=== PATIENT | female | born 1960 | race Caucasian/White ===

== ENCOUNTER 2017-05-02 23:17 | Inpatient (IN) | payer OTHER ==
[~2017-05-02] VITALS: Ht 167.6 cm; Wt 52.0 kg
--- NOTE | ~2017-05-02 | CO ---
Unit #: [id number] #: [id number] Patient: JOSEPHINE MACEDO [id number] [facility] [address] [facility]. [place], [place] [address] [id number] I MR#: [id number] NAME: JOSEPHINE MACEDO [facility] Age: 56 Sex: F Admission Date: 05/03/2017 : 1960 Attending Physician: Kari Costa M.D. Primary Care Physician: Samira Woodson M.D. Requesting Physician: Ebonie Torres M.D. Consultation Date: 05/03/2017 CONSULTATION REPORT REASON FOR CONSULT Anoxic encephalopathy PATIENT IDENTIFICATION This is a 56-year-old female evaluated in ICU room 24 at [facility]. SOURCE OF INFORMATION Obtained from the medical record. HISTORY OF PRESENT ILLNESS This is a 56-year-old female with past medical history of chronic pain, COPD and scoliosis, who presents to [facility] with altered mental status after being found down and was in arrest, resuscitated by EMS. Apparently the patient was last seen normal about 18 to 20 minutes before she was found down. She lives with her daughter, who found the patient. Apparently she had a needle in her arm. Urine tox screen is positive for cocaine and marijuana. There is a concern she may have used fentanyl however. EMS was called when she was found but no bystander CPR was performed. The patient was in PEA when EMS arrived and apparently it took about an hour before she achieved full resuscitation. She received multiple doses of epinephrine and one amp of bicarb. On arrival to the emergency room she required another round of CPR and then they did obtain a pulse. She was intubated by the ER physician and a central line was placed. She was hypotensive and hypothermic with a core temperature of 92 degrees. Labs are as discussed below. Initially on exam in the ER she was breathing over the ventilator as per documentation but no other brainstem reflexes were present. Currently she is not overbreathing the vent. She has no brainstem reflex and no response to noxious stimuli. She has no sedation and her CT scan that was done without contrast in the ER around two o'clock this morning shows changes associated with severe global hypoxic-ischemic brain injury including generalized cerebral edema with complete loss of guzman-white matter differentiation and complete effacement of the cerebral sulci and basilar cisterns, with no evidence of intracranial hemorrhage or mass. PAST MEDICAL HISTORY 1. Chronic pain. 2. Scoliosis. 3. Spine surgery. 4. COPD. 5. Hysterectomy. 6. Tonsillectomy. Unit #: [id number] #: [id number] Patient: JOSEPHINE MACEDO 7. Tobaccoism. ALLERGIES No known drug allergies. HOME MEDICATIONS Not known. FAMILY HISTORY Not known. SOCIAL HISTORY Patient apparently lives with her daughter but apparently they do not have a very good relationship. I am uncertain if the daughter is aware of how serious the patient's situation is. She was last admitted to this facility in 2014. At that time she was working for [employer]. She has a history of tobaccoism, smoking a half pack per day of tobacco. No prior known history of polysubstance abuse but her urine tox screen is positive for cocaine and marijuana and a needle was found in her arm prior to arrival. REVIEW OF SYSTEMS Unable to obtain from the patient given her mental status. PHYSICAL EXAMINATION VITAL SIGNS: Temperature 98, on a Pravin Hugger at this time. Her core temperature on arrival appears to have been 91 degrees. Pulse 117. Respirations 20. Blood pressure 103/72. She is on two pressors. Oxygen saturation 95%. Height 5 feet, 6 inches. Weight 116 pounds. BMI 18. NEUROLOGICAL EXAMINATION MENTAL STATUS: Patient is unresponsive, on a ventilator, to noxious stimuli. She is not sedated. She is intubated. Unable to evaluate any further given that she is not responsive to noxious stimuli. CRANIAL NERVE EXAM: Unable to evaluate rodgers of vision. Eyes however are conjugate. No ptosis or nystagmus. She has negative doll's eyes. Negative corneals. Pupils are about 4+ and fixed, nonreactive. No facial asymmetry or flattening of the nasolabial folds seen. Unable to assess tongue, hearing, uvula or palate, head turning or shoulder shrug. Her neck is supple. MOTOR EXAM: Patient is flaccid. No response to noxious stimuli bilaterally. SENSORY EXAM: No response to noxious stimuli bilaterally. Romberg deferred. GAIT: Deferred. REFLEXES: Not elicited. Toes are not responsive. No triple flexion seen. DIAGNOSTIC STUDIES IMAGING: Please see above for CT scan of the head. LABORATORY: White blood cell count 22.1, hemoglobin 16.8, hematocrit 51.6, platelet count 443, sodium 144, potassium 4, chloride 107, CO2 22, glucose 198, BUN 24, creatinine 1.8, estimated GFR 30.9, calcium 8.3, AST 191, ALT 105, alkaline phosphatase 108, total protein is 7.1, albumin is 4.3, lactic acid 4, PT 12.7, INR 1.2, PTT 26.5. Urine tox screen positive for cocaine and marijuana. Troponin less than 0.05. Initial lactic acid 12.5. Urinalysis unremarkable. Unit #: [id number] #: [id number] Patient: JOSEPHINE MACEDO IMPRESSION 1. Anoxic encephalopathy. 2. Status post arrest, questionable overdose. 3. Chronic pain. 4. Chronic obstructive pulmonary disease. 5. Polysubstance abuse. 6. Leukocytosis. 7. Acute kidney injury. PLAN Dr. Nguyen to evaluate today. Given presentation and prolonged downtime as well as CT scan findings of the brain, prognosis appears to be poor at this time. We will follow along with you. Dr. Nguyen to evaluate and we will attempt to discuss with closest family members once Dr. Nguyen has evaluated the patient. Will continue to monitor at this time and provide supportive care. Further recommendations regarding any further testing pending clinical evaluation and discussion with family. Please call for any questions or issues. We thank you very much for allowing us to assist in the care of this patient. Dictated by... Brandee Lindquist A.P.R.N. for Jose Hui/adriana TD: 05/03/2017 18:49 JOB #: [id number] CONSULTATION REPORT Page 1 of 1 X Brandee Lindquist APRN X CONSULTATION REPORT
--- NOTE | ~2017-05-02 | EKG ---
PATIENT: JOSEPHINE MACEDO UNIT #: [id number] Ventricular Rate: 79 BPM Atrial Rate: 79 BPM P-R Interval: 160 ms QRS Duration: 96 ms Q-T Interval: 458 ms QTC Calculation(Bezet): 525 ms P [place]: 79 degrees Calculated R [place]: 41 degrees Calculated T [place]: 57 degrees Diagnosis Line: Normal sinus rhythm Diagnosis Line: Septal infarct , age undetermined Diagnosis Line: Prolonged QT Diagnosis Line: Abnormal ECG Diagnosis Line: When compared with ECG of 02-JUN-2016 04:22, Diagnosis Line: Vent. rate has decreased BY 42 BPM Diagnosis Line: Septal infarct is now Present Diagnosis Line: ST no longer depressed in Anterior leads Diagnosis Line: T wave inversion less evident in Anterior leads Diagnosis Line: Confirmed by ALLIE SANTIAGO MD ([id number]) on 05/03/2017 Diagnosis Line: 11:52:51 PM INTERPRETING MD: JACK HINDS
--- NOTE | ~2017-05-02 | NM13 ---
[facility] A Service of [facility] & [facility] RADIOLOGY TEXT RESULTS PATIENT: JOSEPHINE MACEDO LOCATION: [address] : [birth year] UNIT #: [id number] AGE: [address]: Kari Costa MD SEX: F ORDER DR: [id number] [facility] [address] [facility]. [place], [place] [address] [id number] I MR#: [id number] Acc #: [id number] NAME: JOSEPHINE MACEDO : 1960 SEX: F STUDY DATE/TIME: 05/04/2017 13:15 UNIT: [facility] ROOM: [facility] STUDY DESCRIPTION: MD Brain Imaging Vasc Flow Attending Physician: Kari Costa M.D. Ordering Physician: Tracy Nguyen M.D. Primary Care Physician: Samira Woodson M.D. MEDICAL IMAGING REPORT This report is preliminary unless electronic signature is present EXAM Brain study, 05/04/2017 CLINICAL HISTORY Anoxic arrest. Unresponsive. PROCEDURE The study performed with 27.1 mCi technetium-99m DTPA IV. FINDINGS Total absence of cerebral blood flow consistent with brain . STAT * RESULT Dictated by... Carlos Eduardo Martini M.D. THIS IS AN ELECTRONICALLY VERIFIED REPORT Carlos Eduardo Martini M.D. at 05/04/2017 2:50 PM THIAGO/sasha TD: 05/04/2017 14:35 JOB #: [id number] MEDICAL IMAGING REPORT Page 1 of 1 COPY
--- NOTE | ~2017-05-02 | CO ---
Unit #: [id number] #: [id number] Patient: JOSEPHINE KRAMER [id number] [address] [place], [place] [address] [id number] I MR#: [id number] NAME: JOSEPHINE KRAMER ROOM: [facility] Age: 56 Sex: F Admission Date: 05/03/2017 : 1960 Attending Physician: Kari Costa M.D. Primary Care Physician: Samira Woodson M.D. Consultation Date: 05/03/2017 CONSULTATION REPORT HISTORY OF PRESENT ILLNESS Ms. Kramer is a 56-year-old white female who was admitted status post resuscitated respiratory arrest. Apparently, she was found down by her daughter. History is gained from the electronic medical record. Apparently, she had a needle in her arm at that time. EMS was called. No bystander CPR was performed. When EMS arrived, the patient was in PEA. They worked her for about an hour. She received multiple doses of epinephrine and one amp of bicarbonate. She was brought to the emergency department being bagged by EMS. After one round of CPR in the ER, she did have a pulse. She was intubated by the ER physician and a central line was placed. She was noted to be hypotensive and hypothermic with a core temperature of 92. Her urine screen was positive for cocaine. She had acute kidney injury. Glucose was 543. Lactic acid was 12.5. Chest x-ray showed some atelectasis in the left base. She was transported to the ICU, and we were asked to see. Arterial blood gases initially on ventilator settings 450 tidal volume, 5 of PEEP, rate of 20 with a respiratory rate of 44 and 100% oxygen: pH of 7.13, PCO2 of 67, and PO2 of 331. Followup gases this morning at 0422 hours: pH of 7.31, PCO2 of 44, and PO2 of 94.7 on 50%, rate of 20, patient rate of 21, tidal volume of 550, and PEEP of 5. Creatinine is 1.8 and glucose 198. Troponin 0.1. Lactic acid now 4. Liver function tests elevated. White count 22,100, hematocrit 51.6, and platelet count 443,000. Chem toxicology positive for cocaine and marijuana. Urinalysis was fairly unremarkable. PAST MEDICAL HISTORY 1. Chronic pain. 2. History of extensive spine injury. 3. Possible COPD. PAST SURGICAL HISTORY 1. Hysterectomy. 2. Tonsillectomy. ALLERGIES No known allergies. MEDICATIONS Unknown. FAMILY HISTORY Unknown. Unit #: [id number] #: [id number] Patient: JOSEPHINE KRAMER SOCIAL HISTORY Unknown. REVIEW OF SYSTEMS Not possible. Patient intubated and unresponsive. PHYSICAL EXAMINATION GENERAL: White female orally intubated. No response. VITAL SIGNS: Blood pressure is 130/95, pulse 110, respiratory rate 16, and afebrile. She is currently maintained on pressors. HEENT: Pupils dilated and unresponsive. No brainstem reflex. No breathing above vent after placing on assist control of 5 for 4 minutes. Normocephalic and atraumatic. NECK: Trachea midline. No cervical or supraclavicular lymphadenopathy. LUNGS: Occasional rhonchi. CARDIAC: Regular rate and rhythm. Could not appreciate murmur, rub, or gallop. ABDOMEN: Nontender. Bowel sounds present. EXTREMITIES: Without clubbing, cyanosis, or edema. NEUROLOGIC: Unresponsive is noted. DIAGNOSTIC STUDIES LABORATORY: As noted. IMPRESSION 1. Severe anoxic encephalopathy. 2. Resuscitated arrest. 3. Polysubstance abuse. 4. Acute respiratory failure. 5. Acute kidney injury. PLAN Vent support. Check arterial blood gases on current ventilator settings. Normalize pH. Will need to evaluate for brain . Neurology to see. Further recommendations pending this. Dictated by... Luis Madrid M.D. GEORGIE/elise TD: 05/03/2017 20:34 JOB #: [id number] CONSULTATION REPORT Page 1 of 1 X Luis Madrid MD X CONSULTATION REPORT
--- NOTE | ~2017-05-02 | CT71 ---
[facility] A Service of [facility] RADIOLOGY TEXT RESULTS PATIENT: JOSEPHINE MACEDO LOCATION: CICCU3 CICCU3-24 : 60 UNIT #: [id number] AGE: [address]: Ebonie Torres MD SEX: F ORDER DR: [id number] [facility] [address] [facility]. [place], [place] [address] [id number] I MR#: [id number] Acc #: [id number] NAME: JOSEPHINE MACEDO : 1960 SEX: F STUDY DATE/TIME: 05/03/2017 2:10 UNIT: [facility] ROOM: 90102 STUDY DESCRIPTION: CT Head Wo Contrast Attending Physician: Ebonie Torres M.D. Ordering Physician: Armand Vail D.O. Primary Care Physician: Samira Woodson M.D. MEDICAL IMAGING REPORT This report is preliminary unless electronic signature is present EXAM CT head, noncontrast, 05/03/2017 HISTORY 56-year-old female in the ED intubated after being found down, unresponsive prior to arrival. TECHNIQUE CT examination of the head without IV contrast. This CT exam was performed with one or more of the following radiation dose reduction techniques: automatic exposure control, adjustment of mA and/or kV according to patient size, and iterative reconstruction. FINDINGS The examination shows changes associated with severe global hypoxic - ischemic brain injury. This includes generalized cerebral edema with complete loss of guzman - white matter differentiation and complete effacement of cerebral sulci and the basilar cisterns. No evidence of intracranial hemorrhage or mass. IMPRESSION Severe global hypoxic - ischemic brain injury as noted above.. STAT * RESULT Dictated by... Wilson Porter M.D. [facility] A Service of [facility] & [facility] RADIOLOGY TEXT RESULTS PATIENT: JOSEPHINE MACEDO LOCATION: CICCU3 CICCU3-24 : 60 UNIT #: [id number] AGE: [address]: Ebonie Torres MD SEX: F ORDER DR: THIS IS AN ELECTRONICALLY VERIFIED REPORT Wilson Porter M.D. at 05/03/2017 4:49 AM PRIYA/bennett TD: 05/03/2017 02:52 JOB #: [id number] MEDICAL IMAGING REPORT Page 1 of 1 COPY
--- NOTE | ~2017-05-02 | DS ---
Unit #: [id number] #: [id number] Patient: JOSEPHINE MACEDO [id number] [address] [address] [id number] I MR#: [id number] NAME: JOSEPIHNE MACEDO ROOM: [facility] Age: 56 Sex: F Admission Date: 05/03/2017 : 1960 Discharge Date: 05/04/2017 Attending Physician: Kari Costa M.D. Primary Care Physician: Samira Woodson M.D. DISCHARGE SUMMARY DISCHARGE DIAGNOSES 1. Brain . 2. Anoxic brain injury. 3. Status post cardiorespiratory arrest. 4. Acute kidney injury. 5. Hypernatremia. 6. Hypokalemia. 7. Transaminitis likely from shock liver. 8. Possible aspiration pneumonia. 9. Chronic obstructive pulmonary disease. 10. Chronic pain. 11. Hyperglycemia secondary to reactive. 12. Elevated lactic acid. 13. History of scoliosis. 14. Polysubstance abuse. 15. Hypocalcemia. 16. Moderate protein malnutrition. 17. Underweight with moderate calorie malnutrition. 18. Urine drug screen positive for cocaine and marijuana. CONSULTATIONS 1. Dr. Madrid. 2. Dr. Nguyen. PROCEDURES None. DIAGNOSTIC TESTING LAB DATA: Hemoglobin A1C 5.7. Glucose 165. Troponin 0.03. Sodium 152, potassium 3, creatinine 1.6, carbon dioxide 34, AST 81, ALT 49, albumin 2.2, lipase 17. CK 668. Sputum culture normal. ABG - pH 7.35, carbon dioxide 58, oxygen 101. IMAGING: Brain perfusion scan shows total absence of cerebral blood flow consistent with brain . CT of the head shows severe global hypoxic ischemic brain injury. Chest x-ray shows bibasilar pulmonary infiltrates and atelectasis, greater on the left. HOSPITALIZATION COURSE A 56 year old admitted after cardiac arrest. Please see history for more details. She was found down, last seen 18 minutes before the Unit #: [id number] #: [id number] Patient: JOSEPHINE MACEDO unresponsiveness. CPR was started by EMS, and she was admitted in ICU. Throughout the hospitalization course she was unresponsive. No pupillary, no gag, no corneal reflex. The patient was hypotensive and hypothermic. Her tox screen was positive for cocaine and marijuana. The patient was seen by pulmonary and neurology, Dr. Nguyen. Discussed with family and daughter, who is next of kin. The patient had brain perfusion scan, which showed brain . The patient was pronounced on 05/04/2017 at 1435 hours after brain perfusion scan showed brain . Daughter and family notified. Currently the patient is under HARRY care. Dictated by... Jose Jain/makenna TD: 05/05/2017 16:07 JOB #: [id number] DISCHARGE SUMMARY Page 1 of 1 X Kari Costa MD X DISCHARGE SUMMARY
--- NOTE | ~2017-05-02 | EKG ---
PATIENT: JOSEPHINE MACEDO UNIT #: [id number] Ventricular Rate: 107 BPM Atrial Rate: 107 BPM P-R Interval: 122 ms QRS Duration: 90 ms Q-T Interval: 366 ms QTC Calculation(Bezet): 488 ms P [place]: 77 degrees Calculated R [place]: 27 degrees Calculated T [place]: 45 degrees Diagnosis Line: Sinus tachycardia Diagnosis Line: Right atrial enlargement Diagnosis Line: Borderline ECG Diagnosis Line: When compared with ECG of 03-MAY-2017 00:23, Diagnosis Line: (unconfirmed) Diagnosis Line: Criteria for Septal infarct are no longer Present Diagnosis Line: Confirmed by ALLIE SANTIAGO MD ([id number]) on 05/03/2017 Diagnosis Line: 11:59:47 PM INTERPRETING MD: JACK HINDS
--- NOTE | ~2017-05-02 | A ---
[facility] Nutrition Therapy DATE: 05/03/17 Patient: JOSEPHINE MACEDO Physician: SHYLA Address: [address] [place] [address] Room/Bed: [address], Zip: [place] [address] Admit Date: 05/03/17 Date of : [birth year] Height: 5 6 Weight: 116 53 NUTRITIONAL ASSESSMENT: REASON: NPO + intubated in ICU, ?low BMI Admitting dx: 56 y/o female found down at home with a needle in her arm, PEA arrest, - CPR PMH: possible COPD, chronic pain Anthropometrics: Ht: 66" vs 64", Wt: 52.7 kg (116 lbs), BMI: 18 vs 19.9 Past weights: 139-147 lbs (2014) Labs: glucose 198, POC 136-192, BUN 24, creat 1.8, GFR 30.9, AST 191, ALT 105, Na/K WNL, no Phos/Mg drawn Meds: Nacl, Na bicarb, pepcid, IV Abx, abraham, levophed I/O & Bowel function: Diarrhea 05/03 per FMS, NGT to LWS Skin Integrity: No significant issues, no edema Estimated Nutrition Needs: 4712-3321 kcals/day (28-32 kcals/kg) 53-63 g protein/day (1-1.2 g/kg) Fluids consistent with kcal needs or per MD Assessment: Chart reviewed, events noted. See admitting dx and PMH as stated above. + SEBASTIAN, glucose 543 on admission now better controlled. Tested + for cocaine and marijuana. CT shows hypoxic brain injury, pt unresponsive on the vent at this time on 2 pressors and no sedation. Has NGT to LWS. No family available to speak with at this time to obtain height/weight history (see conflicting heights and past weights above). Pt is possibly clinically underweight. See recs below, will follow hospital course. Dx: Inadequate energy intake r/t nutrition not yet initiated AEB NPO x 1 day, intubated. Intervention: EN if appropriate Monitoring, Evaluation and Goals: 1. EN consistent with estimated nutritional needs. 2. Glucose, lytes WNL. Monitor: per protocol, criteria to determine if above goals met [facility] Nutrition Therapy DATE: 05/03/17 Patient: JOSEPHINE MACEDO Physician: SHYLA Address: [address] [place] [address] Room/Bed: [address], Zip: [place] [address] Admit Date: 05/03/17 Date of : [birth year] Height: 5 6 Weight: 116 53 Recommendations: 1. Once hemodynamically stable, if consistent with goals of care and medically feasible initiate enteral nutrition with Jevity 1.5 @ 20 ml/hr and increase by 10 ml q 6 hours until goal rate of 45 ml/hr is reached. This will provide 1080 ml, 1620 kcals, 69 g protein and 821 ml water. Once at goal rate add free water flushes per MD, suggest 200 ml QID. 2. If SEBASTIAN worsens and K+/Phos become elevated change EN formula to Nepro goal 35 ml/hr. RD will follow Moderate-severe nutrition risk Respectfully, Casi Mcneal, RD, LD [facility] cc: client file
--- NOTE | ~2017-05-02 | CR72 ---
[facility] A Service of [facility] & [facility] RADIOLOGY TEXT RESULTS PATIENT: JOSEPHINE MACEDO LOCATION: [address] : [birth year] UNIT #: [id number] AGE: [address]: Kari Costa MD SEX: F ORDER DR: [id number] [facility] [address]. [place], [place] [address] [id number] I MR#: [id number] Acc #: [id number] NAME: JOSEPHINE MACEDO : 1960 SEX: F STUDY DATE/TIME: 05/03/2017 0:13 UNIT: [facility] ROOM: [facility] STUDY DESCRIPTION: CR Chest Single View Portable Attending Physician: Kari Costa M.D. Ordering Physician: Armand Vail D.O. Primary Care Physician: Samira Woodson M.D. MEDICAL IMAGING REPORT This report is preliminary unless electronic signature is present EXAM Chest x-ray, 05/03/2017. HISTORY 56-year-old female in the ED intubated after being found down unresponsive with hypodermic needle in her arm. TECHNIQUE AP portable chest x-ray. FINDINGS Newly placed endotracheal tube is in good position with tip in the mid thoracic trachea about 2.7 cm above the ericka. Shallow lung expansion. Air distended stomach likely related to mask ventilation prior to intubation. Moderately dense infiltrate is present in the left lung base, and there is bibasilar pulmonary atelectasis. This is nonspecific, but aspiration pneumonitis should be considered given the history. Mid and upper lungs clear. No pneumothorax. Medhat fixation of the thoracolumbar spine. Scoliosis. IMPRESSION 1. ETT in good position. 2. Bibasilar pulmonary infiltrates and atelectasis, greater on the left. Dictated by... Wilson Porter M.D. THIS IS AN ELECTRONICALLY VERIFIED REPORT Wilson Porter M.D. at 05/03/2017 10:00 PM SHAKIRAW/latoya STS. [facility] A Service of [facility] & [facility] RADIOLOGY TEXT RESULTS PATIENT: JOSEPHINE MACEDO LOCATION: [address] : [birth year] UNIT #: [id number] AGE: [address]: Kari Costa MD SEX: F ORDER DR: TD: 05/03/2017 12:15 JOB #: [id number] MEDICAL IMAGING REPORT Page 1 of 1 COPY
--- NOTE | ~2017-05-02 | HP ---
Unit #: [id number] #: [id number] Patient: JOSEPHINE MACEDO [id number] [address] [place], [place] [address] [id number] MR#: [id number] NAME: JOSEPHINE MACEDO ROOM: [facility] Age: 56 Sex: F Admission Date: 05/03/2017 : 1960 Attending Physician: Ebonie Torres M.D. Primary Care Physician: Samira Woodson M.D. HISTORY AND PHYSICAL CHIEF COMPLAINT Resuscitated arrest. HISTORY This 56-year-old female with possible COPD, chronic pain, is admitted as a resuscitated arrest. Family left. I am told by the ER physician that the patient was last seen normal 18 minutes before she was found down. She was found down by her daughter, and I am told she had a needle in her arm. EMS was called, but no bystander CPR was performed. When EMS arrived, the patient was in PEA. They worked on her for about an hour, she received multiple doses of epinephrine and one amp of bicarb. She was brought into this emergency department being bagged by EMS. After one round of CPR in the ER, she did have a pulse. She was intubated by the ER physician and a central line was placed. The patient was hypotensive, hypothermic with a core temperature of about 92 degrees. In the course of her evaluation, urine tox screen is positive for cocaine. Labs notable for acute kidney injury, and hyperglycemia with a glucose of 543. Lactic acid is 12.5. Chest x-ray shows atelectasis versus infiltrate in the left base. On examination, she is breathing above the ventilator, but no other brainstem reflexes are present. In our ER, she was bolused with 2 L of saline, started on both the Levophed as well as the Asim-Synephrine drip, given 2 amps of bicarb. The patient was hypothermic, and requiring two pressors, therefore it was excluded from hypothermia protocol. PAST MEDICAL HISTORY 1. Chronic pain. 2. History of scoliosis and extensive spine surgery. 3. Possible COPD. 4. Hysterectomy. 5. Tonsillectomy. ALLERGIES No known drug allergies. HOME MEDICATIONS Unknown. FAMILY HISTORY Unknown. SOCIAL HISTORY Unit #: [id number] #: [id number] Patient: JOSEPHINE MACEDO Unknown. In 2014, when she was admitted to this facility, she was working for [employer], was smoking a half pack per day. REVIEW OF SYSTEMS Impossible to obtain as patient is unarousable on a ventilator. PHYSICAL EXAMINATION GENERAL APPEARANCE: Unarousable, thin, 56-year-old female who is orally intubated. VITAL SIGNS: Initial temperature was 91, initial pulse 70, current respirations are 46, O2 saturation is 98% on FIO2 of 100%. Currently blood pressure is 122/71 on both Asim-Synephrine and Levophed drips. Her initial blood pressure, however, was as low as 57/40. Heart rate 87. HEENT: Pupils are nonreactive, and measure about 3 cm. Negative corneals, negative doll's. NECK: Supple. CHEST: Fairly clear. CARDIAC: Normal S1 and S2 without definite murmur. Bilateral breast implants are noted. ABDOMEN: Bowel sounds are not present. Abdomen does look to be somewhat distended. No definite hepatosplenomegaly or masses. EXTREMITIES: Without pedal edema. There is some IO in the left barone. There are some abrasions over the left forearm. NEUROLOGIC EXAM: The patient is breathing above the ventilator. Her pupils are about 3 cm, nonreactive. Negative corneals, negative doll's. She does not react to noxious stimuli. DIAGNOSTIC STUDIES LABORATORY: Admission labs - hematocrit 47.6, white blood count 12.5, MCV 98, normal platelet count. Two bands noted. SMA-12 - glucose is 543, was normal two years ago. Creatinine 1.8, was normal two years ago. Chloride 96, CO2 20, AST 84, ALT 55, lactic acid 12.5. Cardiac markers negative. Urine tox screen positive for marijuana and cocaine. Urinalysis negative. IMAGING: Chest x-ray - ET-tube in good position. Extensive spine surgery. Left lower lobe atelectasis versus infiltrate. CARDIOVASCULAR: EKG - sinus rhythm, rate 80. Q noted in V1 and V2. ASSESSMENT 1. Resuscitated arrest: The patient was found with a needle in her arm. Urine tox screen is positive for cocaine, although I suspect patient could have also used fentanyl which would give a negative urine tox screen. EMS worked on the patient for about an hour in the field. She was in and out of PEA. She was last seen normal 18 minutes before she was found down and I am told no bystander's CPR was performed. She now presents hypothermic, hypotensive with obvious anoxic encephalopathy. 2. Possible aspiration. 3. History of COPD. 4. History of chronic pain. Unit #: [id number] #: [id number] Patient: JOSEPHINE MACEDO 5. Hyperglycemia which could be reactive. 6. Acute kidney injury. 7. Elevated lactic acid: I do not believe the patient is septic. I believe elevated lactic acid is due to poor perfusion state from her cardiac arrest PLANS 1. Head CT. 2. IV fluids and pressors. 3. Repeat all labs including cardiac enzymes in the morning. 4. Zosyn, pending blood and sputum cultures. 5. Repeat urine tox screen. 6. DVT and gastritis prophylaxis. 7. Pulmonary and neurology consultations. 8. Prognosis is extremely guarded. Critical care time spent in evaluating this patient was 40 minutes. Dictated by Ebonie Torres M.D. LEATHA/joseluis TD: 05/03/2017 05:03 JOB #: [id number] HISTORY AND PHYSICAL Page 1 of 1 X Ebonie Torres MD X HISTORY AND PHYSICAL
[~2017-05-02 23:17] MED LIST: AMOXICILLIN500 M1 PO; BACLOFEN20 M1 PO; DURAGESIC100 MCG EXT; LEVAQUIN750 M1 PO; NEURONTIN600 MG PO; OXYCONTIN80 MG PO; PREDNISONE10 MG PO; PROAIR HFA8.5 GM INH; SYMBICORT INH
[2017-05-03 00:03] LABS: ARTERIAL BLD GAS O2 SATURATION 92.3 % (90.0-100.0); ARTERIAL BLOOD GAS CARBOXY HB 5.5 %sat (0.0-9.0); ARTERIAL BLOOD GAS HCO3 14.1 mmol/L; ARTERIAL BLOOD GAS MET HB 1.3 %sat (0.0-2.0)
[2017-05-03 00:04] LABS: ARTERIAL BLOOD GAS pH 6.895 (7.350-7.450)
[2017-05-03 00:05] LABS: ARTERIAL BLOOD GAS ALLEN TEST NORMAL; ARTERIAL BLOOD GAS ART SITE LEFT RADIAL; ARTERIAL BLOOD GAS DELIVERY VENT; ARTERIAL BLOOD GAS PCO2 73.2 mmHg (35.0-45.0); ARTERIAL BLOOD GAS VENT MODE AC; ARTERIAL DRAW? YES
[2017-05-03 00:08] LABS: POC - CKMB 1.3 ng/mL (0.0-7.9); POC - TROPONIN <0.05 ng/mL (<=0.05)
[2017-05-03 00:25] LABS: URINE SOURCE CLEAN CATCH
[2017-05-03 00:29] LABS: URINE APPEARANCE CLEAR; URINE BILIRUBIN NEG (NEG); URINE BLOOD NEG (NEG); URINE COLOR YELLOW; URINE GLUCOSE NEG (NEG); URINE KETONE NEG (NEG); URINE LEUKOCYTE ESTERASE NEG (NEG); URINE NITRATE NEG (NEG); URINE PROTEIN NEG (NEG); URINE SPECIFIC GRAVITY 1.017 (1.003-1.035)
[2017-05-03 00:32] LABS: CULTURE INDICATED? NO
[2017-05-03 00:40] LABS: INR 1.1; PARTIAL THROMBOPLASTIN TIME 82.6 SECONDS (23.5-31.3); PROTHROMBIN TIME (PATIENT) 11.7 SECONDS (10.0-11.7)
[2017-05-03 00:44] LABS: AMPHETAMINE NEG (NEG); BARBITURATES NEG (NEG); BENZODIAZEPINES NEG (NEG); COCAINE POS (NEG); MARIJUANA POS (NEG); OPIATES NEG (NEG); TRICYCLIC ANTIDEPRESSANTS NEG (NEG); U METHADONE NEG (NEG)
[2017-05-03 00:50] LABS: ALBUMIN SERUM 3.9 g/dL (3.5-5.0); BILIRUBIN,TOTAL 0.5 mg/dL (0.2-2.0); BUN/CREATININE RATIO 9.44; CALCIUM SERUM 9.3 mg/dL (8.4-10.2); CREATININE SERUM 1.8 mg/dL (0.6-1.4); GLOM FILT RATE Estimated 30.9 mL/min (>60); POTASSIUM 4.5 mmol/L (3.5-5.1); PROTEIN TOTAL SERUM 6.3 g/dL (6.0-8.3)
[2017-05-03 00:54] LABS: BASOPHIL# 0.1 X10e3 (0-0.3); BASOPHIL% 0.5 % (0-2.5); EOSINOPHIL# 0.2 X10e3 (0-0.7); EOSINOPHIL% 1.7 % (0.0-7.0); HEMATOCRIT 47.6 % (35.0-45.0); LYMPHOCYTE# 6.6 X10e3 (1.0-3.5); MEAN CELL VOLUME 98.4 FL (83-96); MEAN CORPUSCULAR HGB CONC 29.4 g/dL (30-36); MEAN PLATELET VOLUME 6.7 FL (6.5-11.5); MONOCYTE# 0.7 X10e3 (0-1.0); MONOCYTE% 5.6 % (3.0-12.0); NEUTROPHIL# 4.9 X10e3 (1.5-7.1); NEUTROPHIL% 39.2 % (40-75); PLATELET COUNT 346 X10e3 (140-420); RED BLOOD COUNT 4.83 X10e (3.90-5.30); RED CELL DISTRIBUTION WIDTH 15.4 % (11.0-15.5); WHITE BLOOD COUNT 12.5 X10e3 (4.0-10.5)
[2017-05-03 01:22] LABS: DIFF IND YES
[2017-05-03 01:28] LABS: ANISOCYTOSIS SL; PLATELET ESTIMATE NORMAL (NORMAL); POIKILOCYTOSIS SL; TEAR DROP CELLS PRESENT
[2017-05-03 02:32] LABS: ARTERIAL BLD GAS O2 SATURATION 96.3 % (90.0-100.0); ARTERIAL BLOOD GAS CARBOXY HB 2.6 %sat (0.0-9.0); ARTERIAL BLOOD GAS HCO3 22.7 mmol/L; ARTERIAL BLOOD GAS MET HB 0.8 %sat (0.0-2.0)
[2017-05-03 02:34] LABS: ARTERIAL BLOOD GAS ALLEN TEST NORMAL; ARTERIAL BLOOD GAS ART SITE LEFT RADIAL; ARTERIAL BLOOD GAS DELIVERY VENT; ARTERIAL BLOOD GAS PCO2 67.6 mmHg (35.0-45.0); ARTERIAL BLOOD GAS VENT MODE AC; ARTERIAL BLOOD GAS pH 7.134 (7.350-7.450); ARTERIAL DRAW? YES
[2017-05-03 03:28] LABS: POC - CKMB 16.6 ng/mL (0.0-7.9); POC - TROPONIN <0.05 ng/mL (<=0.05)
[2017-05-03 04:23] LABS: ARTERIAL BLD GAS O2 SATURATION 95.4 % (90.0-100.0); ARTERIAL BLOOD GAS CARBOXY HB 1.9 %sat (0.0-9.0); ARTERIAL BLOOD GAS HCO3 22.3 mmol/L; ARTERIAL BLOOD GAS MET HB 0.6 %sat (0.0-2.0); ARTERIAL BLOOD GAS PCO2 44.4 mmHg (35.0-45.0); ARTERIAL BLOOD GAS PO2 94.7 mmHg (80.0-100)
[2017-05-03 04:24] LABS: ARTERIAL BLOOD GAS ALLEN TEST NORMAL; ARTERIAL BLOOD GAS ART SITE LEFT RADIAL; ARTERIAL BLOOD GAS DELIVERY VENT; ARTERIAL BLOOD GAS VENT MODE AC; ARTERIAL DRAW? YES
[2017-05-03 05:32] LABS: AMPHETAMINE NEG (NEG); BARBITURATES NEG (NEG); BENZODIAZEPINES NEG (NEG); COCAINE POS (NEG); MARIJUANA POS (NEG); OPIATES NEG (NEG); TRICYCLIC ANTIDEPRESSANTS NEG (NEG); U METHADONE NEG (NEG)
[2017-05-03 06:12] LABS: INR 1.2; PROTHROMBIN TIME (PATIENT) 12.7 SECONDS (10.0-11.7)
[2017-05-03 06:15] LABS: PARTIAL THROMBOPLASTIN TIME 26.5 SECONDS (23.5-31.3)
[2017-05-03 06:24] LABS: BASOPHIL% 0.2 % (0-2.5); EOSINOPHIL% 0.2 % (0.0-7.0); HEMATOCRIT 51.6 % (35.0-45.0); LYMPHOCYTE# 1.7 X10e3 (1.0-3.5); LYMPHOCYTE% 7.5 % (17.0-45.0); MEAN CORPUSCULAR HEMOGLOBIN 28.6 PG (28-34); MEAN CORPUSCULAR HGB CONC 32.7 g/dL (30-36); MEAN PLATELET VOLUME 6.2 FL (6.5-11.5); MONOCYTE# 0.5 X10e3 (0-1.0); MONOCYTE% 2.5 % (3.0-12.0); NEUTROPHIL# 19.8 X10e3 (1.5-7.1); NEUTROPHIL% 89.6 % (40-75); PLATELET COUNT 443 X10e3 (140-420); RED BLOOD COUNT 5.88 X10e (3.90-5.30); RED CELL DISTRIBUTION WIDTH 14.3 % (11.0-15.5)
[2017-05-03 06:33] LABS: HEMOGLOBIN 16.8 gm/dL (12.0-16.0); WHITE BLOOD COUNT 22.1 X10e3 (4.0-10.5)
[2017-05-03 06:35] LABS: MEAN CELL VOLUME 87.6 FL (83-96)
[2017-05-03 06:38] LABS: ALBUMIN SERUM 4.3 g/dL (3.5-5.0); BILIRUBIN,TOTAL 0.4 mg/dL (0.2-2.0); BUN/CREATININE RATIO 13.33; CALCIUM SERUM 8.3 mg/dL (8.4-10.2); CREATININE SERUM 1.8 mg/dL (0.6-1.4); GLOM FILT RATE Estimated 30.9 mL/min (>60); PROTEIN TOTAL SERUM 7.1 g/dL (6.0-8.3)
[2017-05-03 06:43] LABS: DIFF IND YES
[2017-05-03 07:18] LABS: ANISOCYTOSIS SL; PLATELET ESTIMATE NORMAL (NORMAL)
[2017-05-03 11:32] LABS: %MB 2.1 % (0.0-4.0); MB 35.4 ng/ml
[2017-05-03 12:02] LABS: ARTERIAL BLD GAS O2 SATURATION 97.8 % (90.0-100.0); ARTERIAL BLOOD GAS CARBOXY HB 0.6 %sat (0.0-9.0); ARTERIAL BLOOD GAS HCO3 29.5 mmol/L; ARTERIAL BLOOD GAS PCO2 47.9 mmHg (35.0-45.0); ARTERIAL BLOOD GAS pH 7.399 (7.350-7.450)
[2017-05-03 12:03] LABS: ARTERIAL BLOOD GAS ALLEN TEST NORMAL; ARTERIAL BLOOD GAS ART SITE RIGHT RADIAL; ARTERIAL BLOOD GAS DELIVERY VENT; ARTERIAL BLOOD GAS VENT MODE A/C; ARTERIAL DRAW? YES
[2017-05-03 16:56] LABS: %MB 2.1 % (0.0-4.0); MB 33.6 ng/ml
[2017-05-04 04:28] LABS: ARTERIAL BLD GAS O2 SATURATION 96.5 % (90.0-100.0); ARTERIAL BLOOD GAS CARBOXY HB 0.3 %sat (0.0-9.0); ARTERIAL BLOOD GAS MET HB 0.6 %sat (0.0-2.0); ARTERIAL BLOOD GAS PO2 99.3 mmHg (80.0-100); ARTERIAL BLOOD GAS pH 7.304 (7.350-7.450)
[2017-05-04 04:38] LABS: ARTERIAL BLOOD GAS ALLEN TEST NORMAL; ARTERIAL BLOOD GAS ART SITE RIGHT RADIAL; ARTERIAL BLOOD GAS DELIVERY VENT; ARTERIAL BLOOD GAS PCO2 76.6 mmHg (35.0-45.0); ARTERIAL BLOOD GAS VENT MODE A/C; ARTERIAL DRAW? YES
[2017-05-04 08:01] LABS: BASOPHIL% 0.1 % (0-2.5); EOSINOPHIL% 0.4 % (0.0-7.0); HEMATOCRIT 49.3 % (35.0-45.0); HEMOGLOBIN 16.6 gm/dL (12.0-16.0); LYMPHOCYTE# 0.6 X10e3 (1.0-3.5); LYMPHOCYTE% 6.7 % (17.0-45.0); MEAN CELL VOLUME 87.2 FL (83-96); MEAN CORPUSCULAR HEMOGLOBIN 29.3 PG (28-34); MEAN CORPUSCULAR HGB CONC 33.6 g/dL (30-36); MEAN PLATELET VOLUME 6.4 FL (6.5-11.5); MONOCYTE# 0.4 X10e3 (0-1.0); MONOCYTE% 4.2 % (3.0-12.0); NEUTROPHIL# 8.1 X10e3 (1.5-7.1); NEUTROPHIL% 88.6 % (40-75); RED BLOOD COUNT 5.66 X10e (3.90-5.30); RED CELL DISTRIBUTION WIDTH 14.4 % (11.0-15.5)
[2017-05-04 08:23] LABS: WHITE BLOOD COUNT 9.1 X10e3 (4.0-10.5)
[2017-05-04 08:32] LABS: DIFF IND YES; PLATELET COUNT 185 X10e3 (140-420)
[2017-05-04 08:35] LABS: BILIRUBIN,TOTAL 0.6 mg/dL (0.2-2.0); BUN/CREATININE RATIO 16.66; CALCIUM SERUM 7.5 mg/dL (8.4-10.2); CREATININE SERUM 1.5 mg/dL (0.6-1.4); GLOM FILT RATE Estimated 38.6 mL/min (>60); PROTEIN TOTAL SERUM 5.3 g/dL (6.0-8.3)
[2017-05-04 08:36] LABS: ANISOCYTOSIS SL; PLATELET ESTIMATE NORMAL (NORMAL)
[2017-05-04 08:40] LABS: POTASSIUM 2.8 mmol/L (3.5-5.1)
[2017-05-04 11:56] LABS: AMPHETAMINE NEG (NEG); BARBITURATES NEG (NEG); BENZODIAZEPINES NEG (NEG); COCAINE POS (NEG); MARIJUANA NEG (NEG); OPIATES NEG (NEG); TRICYCLIC ANTIDEPRESSANTS NEG (NEG); U METHADONE NEG (NEG)
[2017-05-06 14:54] LABS: HA AB IGM (HEPPAN) Nonreactive (()); HB CORE AB IGM (HEPPAN) Nonreactive (Nonreactive); HB S AG (HEPPAN) Nonreactive (Nonreactive); HEP C AB (HEPPAN) Nonreactive (Nonreactive); HEP C AB SIGNAL TO CUTOFF 0.01 ratio (<1.00)
== END 2017-05-04 23:15 | DRG 917 ==
LOC: CED 23:17 → CEDOF 05-03 00:39 → CICCU3 05-03 03:55
PROVIDERS: Emergency Medicine; Internal Medicine; Nurse Practitioner
PROC: 0BH17EZ Insertion of Endotracheal Airway into Trachea, Via Natural or Artificial Opening (ICD-10-PCS; principal; 2017-05-03)
PROC: 5A1945Z Respiratory Ventilation, 24-96 Consecutive Hours (ICD-10-PCS; 2017-05-03)
PROC: 05H333Z Insertion of Infusion Device into Right Innominate Vein, Percutaneous Approach (ICD-10-PCS; 2017-05-03)
PROC: B54MZZA Ultrasonography of Right Upper Extremity Veins, Guidance (ICD-10-PCS; 2017-05-03)
DX: T40.5X1A Poisoning by cocaine, accidental (unintentional), initial encounter (principal); K72.00 Acute and subacute hepatic failure without coma; I46.9 Cardiac arrest, cause unspecified; J96.00 Acute respiratory failure, unspecified whether with hypoxia or hypercapnia; J69.0 Pneumonitis due to inhalation of food and vomit; G93.1 Anoxic brain damage, not elsewhere classified; I95.9 Hypotension, unspecified; E83.51 Hypocalcemia; E87.0 Hyperosmolality and hypernatremia; N17.9 Acute kidney failure, unspecified; E44.0 Moderate protein-calorie malnutrition; Z68.1 Body mass index [BMI] 19.9 or less, adult; J44.9 Chronic obstructive pulmonary disease, unspecified; M41.9 Scoliosis, unspecified; G89.29 Other chronic pain; Z90.710 Acquired absence of both cervix and uterus; F17.210 Nicotine dependence, cigarettes, uncomplicated; E87.6 Hypokalemia; R73.9 Hyperglycemia, unspecified; R68.0 Hypothermia, not associated with low environmental temperature; F14.10 Cocaine abuse, uncomplicated; F12.10 Cannabis abuse, uncomplicated
CPT/HCPCS: 31500; 36415; 36556; 36600; 51702; 70450; 71010; 78610; 80053; 80074; 80307; 81003; 82550; 82553; 82803; 82947; 83605; 83735; 84132; 84484; 85025; 85610; 85730; 86850; 86900; 86901; 87040; 87070; 87205; 87493; 87806; 92950; 93005; 94002; 94003; 94640; 94760; 96361; 96374; 99291; A9539; J0171; J2370; J2543; J3475

== ENCOUNTER 2017-05-04 23:15 | Inpatient (IN) | payer OTHER ==
[~2017-05-04] VITALS: Ht 167.6 cm; Wt 53.0 kg
--- NOTE | ~2017-05-04 | CR72 ---
[facility] A Service of [facility] & [facility] RADIOLOGY TEXT RESULTS PATIENT: JOSEPHINE MACEDO LOCATION: [address] : [birth year] UNIT #: [id number] AGE: [address]: VINAY SEX: F ORDER DR: [id number] [facility] [address] [facility]. [place], [place] [address] [id number] MR#: [id number] Acc #: [id number] NAME: JOSEPHINE MACEDO : 1960 SEX: F STUDY DATE/TIME: 05/05/2017 06:32 UNIT: [facility] ROOM: [facility] STUDY DESCRIPTION: CR Chest Single View Portable Attending Physician: Vinay Ordering Physician: Physician Non-Staff Primary Care Physician: Samira Woodson M.D. MEDICAL IMAGING REPORT This report is preliminary unless electronic signature is present EXAM Chest portable, 05/05/2017 06:32 hours HISTORY Respiratory failure since 05/03/2017, brain . Film required per VINAY guidelines. COMPARISON 05/03/2017 FINDINGS Portable semierect chest film demonstrates endotracheal tube and nasogastric tube unchanged. There is spinal hardware extending from the lower thoracic spine to the upper lumbar spine without change. Heart size is within normal limits. Nasogastric tube tip is in the mid body of the stomach. There is persistent left basilar density in the retrocardiac region, perhaps a small effusion. IMPRESSION 1. Satisfactory positioning of endotracheal tube and nasogastric tube. 2. There is persistent left retrocardiac parenchymal density in the lung with perhaps a small associated effusion. This could represent pneumonia, atelectasis or aspiration. The right lung is clear. 3. There is no pneumothorax. STAT * RESULT Dictated by... Floridalma Muir M.D. THIS IS AN ELECTRONICALLY VERIFIED REPORT Floridalma Muir M.D. at 05/05/2017 2:30 PM [facility] A Service of [facility] & [facility] RADIOLOGY TEXT RESULTS PATIENT: JOSEPHINE MACEDO LOCATION: [address] : [birth year] UNIT #: [id number] AGE: [address]: VINAY SEX: F ORDER DR: TD: 05/05/2017 12:32 JOB #: [id number] MEDICAL IMAGING REPORT Page 1 of 1 COPY
--- NOTE | ~2017-05-04 | EKG ---
PATIENT: JOSEPHINE MCAEDO UNIT #: [id number] Ventricular Rate: 111 BPM Atrial Rate: 111 BPM P-R Interval: 124 ms QRS Duration: 90 ms Q-T Interval: 356 ms QTC Calculation(Bezet): 484 ms P [place]: 53 degrees Calculated R [place]: 12 degrees Calculated T [place]: 68 degrees Diagnosis Line: Sinus tachycardia Diagnosis Line: Septal infarct , age undetermined Diagnosis Line: T wave abnormality, consider anterior ischemia Diagnosis Line: Abnormal ECG Diagnosis Line: When compared with ECG of 03-MAY-2017 05:57, Diagnosis Line: Septal infarct is now Present Diagnosis Line: Nonspecific T wave abnormality, worse in Inferior Diagnosis Line: leads Diagnosis Line: T wave inversion now evident in Anterior leads Diagnosis Line: Confirmed by ALLIE SANTIAGO MD ([id number]) on 05/05/2017 Diagnosis Line: 7:19:05 PM INTERPRETING MD: JACK HINDS
[2017-05-05 00:37] LABS: ARTERIAL BLD GAS O2 SATURATION 93.3 % (90.0-100.0); ARTERIAL BLOOD GAS CARBOXY HB 0.5 %sat (0.0-9.0); ARTERIAL BLOOD GAS HCO3 39.5 mmol/L; ARTERIAL BLOOD GAS MET HB 0.7 %sat (0.0-2.0); ARTERIAL BLOOD GAS pH 7.438 (7.350-7.450)
[2017-05-05 00:44] LABS: ARTERIAL BLOOD GAS ALLEN TEST NORMAL; ARTERIAL BLOOD GAS ART SITE RIGHT RADIAL; ARTERIAL BLOOD GAS PCO2 58.4 mmHg (35.0-45.0); ARTERIAL BLOOD GAS PO2 67.6 mmHg (80.0-100); ARTERIAL DRAW? YES
[2017-05-05 00:45] LABS: ARTERIAL BLOOD GAS DELIVERY VENT; ARTERIAL BLOOD GAS VENT MODE AC
[2017-05-05 01:15] LABS: BASOPHIL% 0.4 % (0-2.5); DIFF IND NO; EOSINOPHIL# 0.1 X10e3 (0-0.7); EOSINOPHIL% 0.6 % (0.0-7.0); HEMATOCRIT 45.5 % (35.0-45.0); HEMOGLOBIN 14.8 gm/dL (12.0-16.0); LYMPHOCYTE# 0.9 X10e3 (1.0-3.5); LYMPHOCYTE% 7.5 % (17.0-45.0); MEAN CELL VOLUME 87.3 FL (83-96); MEAN CORPUSCULAR HEMOGLOBIN 28.4 PG (28-34); MEAN CORPUSCULAR HGB CONC 32.5 g/dL (30-36); MEAN PLATELET VOLUME 7.1 FL (6.5-11.5); MONOCYTE# 0.6 X10e3 (0-1.0); NEUTROPHIL# 10.4 X10e3 (1.5-7.1); NEUTROPHIL% 86.5 % (40-75); PLATELET COUNT 184 X10e3 (140-420); RED BLOOD COUNT 5.21 X10e (3.90-5.30); RED CELL DISTRIBUTION WIDTH 14.3 % (11.0-15.5)
[2017-05-05 01:30] LABS: INR 1.4; PARTIAL THROMBOPLASTIN TIME 37.8 SECONDS (23.5-31.3); PROTHROMBIN TIME (PATIENT) 15.2 SECONDS (10.0-11.7)
[2017-05-05 01:41] LABS: ALBUMIN SERUM 2.9 g/dL (3.5-5.0); BILIRUBIN, DIRECT 0.1 mg/dL (0.0-0.2); BILIRUBIN,INDIRECT 0.9 mg/dL (0.0-0.9); BUN/CREATININE RATIO 15.33; CREATININE SERUM 1.5 mg/dL (0.6-1.4); GLOM FILT RATE Estimated 38.6 mL/min (>60); MAGNESIUM 2.1 mg/dL (1.6-3.0); PHOSPHOROUS 4.7 mg/dL (2.5-4.6); POTASSIUM 3.2 mmol/L (3.5-5.1); PROTEIN TOTAL SERUM 5.5 g/dL (6.0-8.3)
[2017-05-05 02:01] LABS: %MB 0.9 % (0.0-4.0)
[2017-05-05 05:17] LABS: ARTERIAL BLD GAS O2 SATURATION 97.7 % (90.0-100.0); ARTERIAL BLOOD GAS CARBOXY HB 0.3 %sat (0.0-9.0); ARTERIAL BLOOD GAS MET HB 0.8 %sat (0.0-2.0); ARTERIAL BLOOD GAS pH 7.306 (7.350-7.450)
[2017-05-05 05:21] LABS: ARTERIAL BLOOD GAS PCO2 70.2 mmHg (35.0-45.0)
[2017-05-05 05:22] LABS: ARTERIAL BLOOD GAS ALLEN TEST NORMAL; ARTERIAL BLOOD GAS ART SITE LEFT RADIAL; ARTERIAL BLOOD GAS DELIVERY VENT; ARTERIAL BLOOD GAS VENT MODE AC; ARTERIAL DRAW? YES
[2017-05-05 05:50] LABS: BASOPHIL% 0.6 % (0-2.5); EOSINOPHIL% 0.3 % (0.0-7.0); HEMATOCRIT 37.9 % (35.0-45.0); LYMPHOCYTE# 0.4 X10e3 (1.0-3.5); LYMPHOCYTE% 8.7 % (17.0-45.0); MEAN CELL VOLUME 89.3 FL (83-96); MEAN CORPUSCULAR HEMOGLOBIN 29.5 PG (28-34); MEAN PLATELET VOLUME 7.1 FL (6.5-11.5); MONOCYTE# 0.2 X10e3 (0-1.0); NEUTROPHIL# 4.3 X10e3 (1.5-7.1); NEUTROPHIL% 86.4 % (40-75); PLATELET COUNT 121 X10e3 (140-420); RED BLOOD COUNT 4.24 X10e (3.90-5.30); RED CELL DISTRIBUTION WIDTH 14.2 % (11.0-15.5)
[2017-05-05 05:51] LABS: DIFF IND NO; HEMOGLOBIN 12.5 gm/dL (12.0-16.0)
[2017-05-05 06:12] LABS: INR 1.5; PARTIAL THROMBOPLASTIN TIME 50.4 SECONDS (23.5-31.3); PROTHROMBIN TIME (PATIENT) 16.2 SECONDS (10.0-11.7)
[2017-05-05 06:40] LABS: ARTERIAL BLD GAS O2 SATURATION 96.4 % (90.0-100.0); ARTERIAL BLOOD GAS CARBOXY HB 0.5 %sat (0.0-9.0); ARTERIAL BLOOD GAS HCO3 32.7 mmol/L; ARTERIAL BLOOD GAS MET HB 0.8 %sat (0.0-2.0); ARTERIAL BLOOD GAS pH 7.356 (7.350-7.450)
[2017-05-05 06:41] LABS: ARTERIAL BLOOD GAS ART SITE RIGHT RADIAL; ARTERIAL BLOOD GAS DELIVERY VENT; ARTERIAL BLOOD GAS PCO2 58.6 mmHg (35.0-45.0); ARTERIAL BLOOD GAS VENT MODE AC; ARTERIAL DRAW? YES
[2017-05-05 06:50] LABS: ALBUMIN SERUM 2.2 g/dL (3.5-5.0); BILIRUBIN, DIRECT 0.2 mg/dL (0.0-0.2); BILIRUBIN,INDIRECT 0.6 mg/dL (0.0-0.9); BILIRUBIN,TOTAL 0.8 mg/dL (0.2-2.0); BUN/CREATININE RATIO 13.75; CALCIUM SERUM 7.9 mg/dL (8.4-10.2); CREATININE SERUM 1.6 mg/dL (0.6-1.4); GLOM FILT RATE Estimated 35.7 mL/min (>60); MAGNESIUM 2.1 mg/dL (1.6-3.0); PHOSPHOROUS 3.3 mg/dL (2.5-4.6); PROTEIN TOTAL SERUM 4.3 g/dL (6.0-8.3)
[2017-05-05 07:43] LABS: %MB 0.8 % (0.0-4.0); MB 5.4 ng/ml
[2017-05-05 09:48] LABS: INR 1.4; PARTIAL THROMBOPLASTIN TIME 50.6 SECONDS (23.5-31.3); PROTHROMBIN TIME (PATIENT) 15.4 SECONDS (10.0-11.7)
[2017-05-05 09:58] LABS: BASOPHIL% 0.1 % (0-2.5); DIFF IND NO; EOSINOPHIL% 0.1 % (0.0-7.0); HEMATOCRIT 37.8 % (35.0-45.0); HEMOGLOBIN 12.4 gm/dL (12.0-16.0); LYMPHOCYTE# 0.4 X10e3 (1.0-3.5); LYMPHOCYTE% 6.6 % (17.0-45.0); MEAN CELL VOLUME 87.7 FL (83-96); MEAN CORPUSCULAR HEMOGLOBIN 28.8 PG (28-34); MEAN CORPUSCULAR HGB CONC 32.9 g/dL (30-36); MEAN PLATELET VOLUME 7.1 FL (6.5-11.5); MONOCYTE# 0.3 X10e3 (0-1.0); NEUTROPHIL# 5.2 X10e3 (1.5-7.1); NEUTROPHIL% 88.2 % (40-75); PLATELET COUNT 133 X10e3 (140-420); RED BLOOD COUNT 4.31 X10e (3.90-5.30); RED CELL DISTRIBUTION WIDTH 14.1 % (11.0-15.5); WHITE BLOOD COUNT 5.9 X10e3 (4.0-10.5)
[2017-05-05 10:07] LABS: ALBUMIN SERUM 2.5 g/dL (3.5-5.0); BILIRUBIN, DIRECT 0.2 mg/dL (0.0-0.2); BILIRUBIN,INDIRECT 0.8 mg/dL (0.0-0.9); BUN/CREATININE RATIO 18.33; CALCIUM SERUM 8.5 mg/dL (8.4-10.2); CREATININE SERUM 1.2 mg/dL (0.6-1.4); GLOM FILT RATE Estimated 50.5 mL/min (>60); PHOSPHOROUS 1.8 mg/dL (2.5-4.6); POTASSIUM 3.5 mmol/L (3.5-5.1); PROTEIN TOTAL SERUM 4.7 g/dL (6.0-8.3)
[2017-05-05 10:11] LABS: ARTERIAL BLD GAS O2 SATURATION 98.8 % (90.0-100.0); ARTERIAL BLOOD GAS CARBOXY HB 0.4 %sat (0.0-9.0); ARTERIAL BLOOD GAS MET HB 0.6 %sat (0.0-2.0); ARTERIAL BLOOD GAS PCO2 45.1 mmHg (35.0-45.0); ARTERIAL BLOOD GAS pH 7.459 (7.350-7.450)
[2017-05-05 10:12] LABS: ARTERIAL BLOOD GAS ART SITE ARTERIAL LINE; ARTERIAL BLOOD GAS DELIVERY VENT; ARTERIAL BLOOD GAS VENT MODE AC; ARTERIAL DRAW? YES
[2017-05-05 13:12] LABS: ARTERIAL BLOOD GAS ART SITE ARTERIAL LINE; ARTERIAL BLOOD GAS CARBOXY HB 0.7 %sat (0.0-9.0); ARTERIAL BLOOD GAS HCO3 29.4 mmol/L; ARTERIAL BLOOD GAS MET HB 0.6 %sat (0.0-2.0); ARTERIAL BLOOD GAS PCO2 43.6 mmHg (35.0-45.0); ARTERIAL BLOOD GAS PO2 61.3 mmHg (80.0-100); ARTERIAL BLOOD GAS pH 7.437 (7.350-7.450); ARTERIAL DRAW? YES
[2017-05-05 13:13] LABS: ARTERIAL BLOOD GAS DELIVERY VENT; ARTERIAL BLOOD GAS VENT MODE AC
[2017-05-05 13:32] LABS: ARTERIAL BLD GAS O2 SATURATION 98.7 % (90.0-100.0); ARTERIAL BLOOD GAS CARBOXY HB 0.5 %sat (0.0-9.0); ARTERIAL BLOOD GAS HCO3 29.1 mmol/L; ARTERIAL BLOOD GAS MET HB 0.6 %sat (0.0-2.0); ARTERIAL BLOOD GAS PCO2 44.2 mmHg (35.0-45.0); ARTERIAL BLOOD GAS pH 7.426 (7.350-7.450); ARTERIAL DRAW? YES
[2017-05-05 13:33] LABS: ARTERIAL BLOOD GAS ART SITE ARTERIAL LINE; ARTERIAL BLOOD GAS DELIVERY VENT; ARTERIAL BLOOD GAS VENT MODE AC
[2017-05-05 13:59] LABS: BASOPHIL% 0.2 % (0-2.5); HEMATOCRIT 35.1 % (35.0-45.0); HEMOGLOBIN 11.9 gm/dL (12.0-16.0); LYMPHOCYTE# 0.7 X10e3 (1.0-3.5); LYMPHOCYTE% 9.7 % (17.0-45.0); MEAN CELL VOLUME 86.8 FL (83-96); MEAN CORPUSCULAR HEMOGLOBIN 29.4 PG (28-34); MEAN CORPUSCULAR HGB CONC 33.8 g/dL (30-36); MONOCYTE# 0.4 X10e3 (0-1.0); NEUTROPHIL# 6.1 X10e3 (1.5-7.1); NEUTROPHIL% 85.1 % (40-75); PLATELET COUNT 122 X10e3 (140-420); RED BLOOD COUNT 4.04 X10e (3.90-5.30); RED CELL DISTRIBUTION WIDTH 14.3 % (11.0-15.5); WHITE BLOOD COUNT 7.2 X10e3 (4.0-10.5)
[2017-05-05 14:01] LABS: DIFF IND NO
[2017-05-05 14:12] LABS: URINE APPEARANCE CLEAR; URINE BILIRUBIN NEG (NEG); URINE BLOOD 2+ (NEG); URINE COLOR YELLOW; URINE GLUCOSE NEG (NEG); URINE KETONE NEG (NEG); URINE LEUKOCYTE ESTERASE NEG (NEG); URINE NITRATE NEG (NEG); URINE PROTEIN 2+ (NEG); URINE SPECIFIC GRAVITY 1.015 (1.003-1.035); URINE UROBILINOGEN 0.2 MG/DL (NEG)
[2017-05-05 14:15] LABS: URINE BACTERIA AUWI NEG (NEGATIVE); URINE SQUAMOUS EPITHELIAL CELL OCC /[HPF]
[2017-05-05 14:20] LABS: INR 1.4; PARTIAL THROMBOPLASTIN TIME 56.5 SECONDS (23.5-31.3); PROTHROMBIN TIME (PATIENT) 14.7 SECONDS (10.0-11.7)
[2017-05-05 14:25] LABS: ALBUMIN SERUM 2.5 g/dL (3.5-5.0); BILIRUBIN, DIRECT 0.2 mg/dL (0.0-0.2); BILIRUBIN,INDIRECT 0.7 mg/dL (0.0-0.9); BILIRUBIN,TOTAL 0.9 mg/dL (0.2-2.0); CALCIUM SERUM 8.5 mg/dL (8.4-10.2); MAGNESIUM 1.9 mg/dL (1.6-3.0); PHOSPHOROUS 2.7 mg/dL (2.5-4.6); POTASSIUM 3.9 mmol/L (3.5-5.1); PROTEIN TOTAL SERUM 4.8 g/dL (6.0-8.3)
[2017-05-05 17:26] LABS: BASOPHIL% 0.2 % (0-2.5); HEMATOCRIT 33.9 % (35.0-45.0); HEMOGLOBIN 11.4 gm/dL (12.0-16.0); LYMPHOCYTE# 0.8 X10e3 (1.0-3.5); LYMPHOCYTE% 9.4 % (17.0-45.0); MEAN CELL VOLUME 86.7 FL (83-96); MEAN CORPUSCULAR HEMOGLOBIN 29.3 PG (28-34); MEAN CORPUSCULAR HGB CONC 33.7 g/dL (30-36); MEAN PLATELET VOLUME 7.2 FL (6.5-11.5); MONOCYTE# 0.3 X10e3 (0-1.0); NEUTROPHIL# 7.5 X10e3 (1.5-7.1); NEUTROPHIL% 86.4 % (40-75); PLATELET COUNT 126 X10e3 (140-420); RED BLOOD COUNT 3.91 X10e (3.90-5.30); RED CELL DISTRIBUTION WIDTH 13.9 % (11.0-15.5); WHITE BLOOD COUNT 8.6 X10e3 (4.0-10.5)
[2017-05-05 17:33] LABS: ARTERIAL BLD GAS O2 SATURATION 98.3 % (90.0-100.0); ARTERIAL BLOOD GAS CARBOXY HB 0.6 %sat (0.0-9.0); ARTERIAL BLOOD GAS HCO3 27.7 mmol/L; ARTERIAL BLOOD GAS MET HB 1.2 %sat (0.0-2.0); ARTERIAL BLOOD GAS PCO2 39.6 mmHg (35.0-45.0); ARTERIAL BLOOD GAS pH 7.453 (7.350-7.450)
[2017-05-05 17:34] LABS: ARTERIAL BLOOD GAS ART SITE ARTERIAL LINE; ARTERIAL BLOOD GAS DELIVERY VENT; ARTERIAL BLOOD GAS VENT MODE PC22; ARTERIAL DRAW? YES
[2017-05-05 17:35] LABS: DIFF IND NO
[2017-05-05 17:48] LABS: INR 1.2; PARTIAL THROMBOPLASTIN TIME 56.4 SECONDS (23.5-31.3); PROTHROMBIN TIME (PATIENT) 13.5 SECONDS (10.0-11.7)
[2017-05-05 18:20] LABS: ALBUMIN SERUM 2.4 g/dL (3.5-5.0); BILIRUBIN, DIRECT 0.2 mg/dL (0.0-0.2); BILIRUBIN,INDIRECT 0.7 mg/dL (0.0-0.9); BILIRUBIN,TOTAL 0.9 mg/dL (0.2-2.0); CALCIUM SERUM 8.6 mg/dL (8.4-10.2); MAGNESIUM 1.8 mg/dL (1.6-3.0); PHOSPHOROUS 2.7 mg/dL (2.5-4.6); POTASSIUM 3.7 mmol/L (3.5-5.1); PROTEIN TOTAL SERUM 4.7 g/dL (6.0-8.3)
[2017-05-05 23:57] LABS: ARTERIAL BLD GAS O2 SATURATION 98.8 % (90.0-100.0); ARTERIAL BLOOD GAS CARBOXY HB 0.4 %sat (0.0-9.0); ARTERIAL BLOOD GAS HCO3 26.3 mmol/L; ARTERIAL BLOOD GAS MET HB 0.9 %sat (0.0-2.0); ARTERIAL BLOOD GAS PCO2 39.7 mmHg (35.0-45.0)
[2017-05-05 23:59] LABS: ARTERIAL BLOOD GAS DELIVERY VENT
[2017-05-06] LABS: ARTERIAL BLOOD GAS ART SITE ARTERIAL LINE; ARTERIAL BLOOD GAS VENT MODE PC
[2017-05-06 00:19] LABS: INR 1.2; PARTIAL THROMBOPLASTIN TIME 52.8 SECONDS (23.5-31.3); PROTHROMBIN TIME (PATIENT) 12.5 SECONDS (10.0-11.7)
[2017-05-06 00:33] LABS: ALBUMIN SERUM 2.6 g/dL (3.5-5.0); BILIRUBIN, DIRECT 0.2 mg/dL (0.0-0.2); BILIRUBIN,TOTAL 1.2 mg/dL (0.2-2.0); BUN/CREATININE RATIO 20.83; CALCIUM SERUM 8.7 mg/dL (8.4-10.2); CREATININE SERUM 1.2 mg/dL (0.6-1.4); GLOM FILT RATE Estimated 50.5 mL/min (>60); MAGNESIUM 1.8 mg/dL (1.6-3.0); PHOSPHOROUS 2.9 mg/dL (2.5-4.6); POTASSIUM 3.7 mmol/L (3.5-5.1); PROTEIN TOTAL SERUM 5.1 g/dL (6.0-8.3)
[2017-05-06 01:38] LABS: BASOPHIL% 0.1 % (0-2.5); HEMATOCRIT 32.4 % (35.0-45.0); LYMPHOCYTE# 0.6 X10e3 (1.0-3.5); LYMPHOCYTE% 4.6 % (17.0-45.0); MEAN CELL VOLUME 85.7 FL (83-96); MEAN CORPUSCULAR HEMOGLOBIN 29.2 PG (28-34); MEAN CORPUSCULAR HGB CONC 34.1 g/dL (30-36); MEAN PLATELET VOLUME 7.6 FL (6.5-11.5); MONOCYTE# 0.3 X10e3 (0-1.0); MONOCYTE% 2.6 % (3.0-12.0); NEUTROPHIL# 12.5 X10e3 (1.5-7.1); NEUTROPHIL% 92.7 % (40-75); PLATELET COUNT 124 X10e3 (140-420); RED BLOOD COUNT 3.78 X10e (3.90-5.30); RED CELL DISTRIBUTION WIDTH 13.8 % (11.0-15.5)
[2017-05-06 01:39] LABS: WHITE BLOOD COUNT 13.4 X10e3 (4.0-10.5)
[2017-05-06 01:40] LABS: DIFF IND NO
[2017-05-06 04:26] LABS: BASOPHIL% 0.1 % (0-2.5); HEMATOCRIT 28.7 % (35.0-45.0); HEMOGLOBIN 9.7 gm/dL (12.0-16.0); LYMPHOCYTE# 0.7 X10e3 (1.0-3.5); LYMPHOCYTE% 5.9 % (17.0-45.0); MEAN CELL VOLUME 86.5 FL (83-96); MEAN CORPUSCULAR HEMOGLOBIN 29.2 PG (28-34); MEAN CORPUSCULAR HGB CONC 33.7 g/dL (30-36); MEAN PLATELET VOLUME 7.1 FL (6.5-11.5); MONOCYTE# 0.4 X10e3 (0-1.0); MONOCYTE% 3.5 % (3.0-12.0); NEUTROPHIL# 10.1 X10e3 (1.5-7.1); NEUTROPHIL% 90.5 % (40-75); PLATELET COUNT 100 X10e3 (140-420); RED BLOOD COUNT 3.32 X10e (3.90-5.30); RED CELL DISTRIBUTION WIDTH 14.1 % (11.0-15.5); WHITE BLOOD COUNT 11.1 X10e3 (4.0-10.5)
[2017-05-06 04:27] LABS: DIFF IND NO
[2017-05-06 04:36] LABS: INR 1.2; PARTIAL THROMBOPLASTIN TIME 57.6 SECONDS (23.5-31.3); PROTHROMBIN TIME (PATIENT) 12.6 SECONDS (10.0-11.7)
[2017-05-06 04:44] LABS: ARTERIAL BLD GAS O2 SATURATION 98.3 % (90.0-100.0); ARTERIAL BLOOD GAS CARBOXY HB 0.5 %sat (0.0-9.0); ARTERIAL BLOOD GAS HCO3 24.5 mmol/L; ARTERIAL BLOOD GAS pH 7.442 (7.350-7.450)
[2017-05-06 04:45] LABS: ALBUMIN SERUM 2.2 g/dL (3.5-5.0); BILIRUBIN, DIRECT 0.1 mg/dL (0.0-0.2); BILIRUBIN,INDIRECT 0.5 mg/dL (0.0-0.9); BILIRUBIN,TOTAL 0.6 mg/dL (0.2-2.0); MAGNESIUM 1.7 mg/dL (1.6-3.0); PHOSPHOROUS 3.3 mg/dL (2.5-4.6); POTASSIUM 3.4 mmol/L (3.5-5.1); PROTEIN TOTAL SERUM 4.5 g/dL (6.0-8.3)
[2017-05-06 04:48] LABS: ARTERIAL BLOOD GAS ART SITE ARTERIAL LINE; ARTERIAL BLOOD GAS DELIVERY VENT; ARTERIAL BLOOD GAS VENT MODE PC; ARTERIAL DRAW? YES
[2017-05-06 11:10] LABS: BASOPHIL% 0.1 % (0-2.5); HEMATOCRIT 29.3 % (35.0-45.0); HEMOGLOBIN 9.7 gm/dL (12.0-16.0); LYMPHOCYTE# 0.6 X10e3 (1.0-3.5); LYMPHOCYTE% 5.3 % (17.0-45.0); MEAN CELL VOLUME 86.6 FL (83-96); MEAN CORPUSCULAR HEMOGLOBIN 28.6 PG (28-34); MEAN PLATELET VOLUME 7.5 FL (6.5-11.5); MONOCYTE# 0.4 X10e3 (0-1.0); MONOCYTE% 3.2 % (3.0-12.0); NEUTROPHIL% 91.4 % (40-75); PLATELET COUNT 103 X10e3 (140-420); RED BLOOD COUNT 3.39 X10e (3.90-5.30); RED CELL DISTRIBUTION WIDTH 14.1 % (11.0-15.5)
[2017-05-06 11:19] LABS: DIFF IND NO
[2017-05-06 11:19] LABS: URINE APPEARANCE CLEAR; URINE BILIRUBIN NEG (NEG); URINE BLOOD 2+ (NEG); URINE COLOR YELLOW; URINE GLUCOSE NEG (NEG); URINE KETONE NEG (NEG); URINE LEUKOCYTE ESTERASE TRACE (NEG); URINE NITRATE NEG (NEG); URINE PH 5.5 (5-8); URINE PROTEIN 1+ (NEG); URINE SPECIFIC GRAVITY 1.018 (1.003-1.035); URINE UROBILINOGEN 0.2 MG/DL (NEG)
[2017-05-06 11:21] LABS: URINE BACTERIA AUWI NEG (NEGATIVE); URINE SQUAMOUS EPITHELIAL CELL OCC /[HPF]
[2017-05-06 11:27] LABS: INR 1.1; PARTIAL THROMBOPLASTIN TIME 51.4 SECONDS (23.5-31.3); PROTHROMBIN TIME (PATIENT) 11.6 SECONDS (10.0-11.7)
[2017-05-06 11:30] LABS: ARTERIAL BLOOD GAS CARBOXY HB 0.9 %sat (0.0-9.0); ARTERIAL BLOOD GAS HCO3 24.5 mmol/L; ARTERIAL BLOOD GAS PCO2 35.7 mmHg (35.0-45.0); ARTERIAL BLOOD GAS PO2 80.9 mmHg (80.0-100); ARTERIAL BLOOD GAS pH 7.445 (7.350-7.450)
[2017-05-06 11:31] LABS: ARTERIAL BLOOD GAS ART SITE ARTERIAL LINE; ARTERIAL BLOOD GAS DELIVERY VENT; ARTERIAL DRAW? YES
[2017-05-06 11:32] LABS: ARTERIAL BLOOD GAS VENT MODE PC
[2017-05-06 11:50] LABS: ALBUMIN SERUM 2.2 g/dL (3.5-5.0); BILIRUBIN, DIRECT 0.1 mg/dL (0.0-0.2); BILIRUBIN,INDIRECT 0.4 mg/dL (0.0-0.9); BILIRUBIN,TOTAL 0.5 mg/dL (0.2-2.0); CALCIUM SERUM 8.3 mg/dL (8.4-10.2); MAGNESIUM 2.1 mg/dL (1.6-3.0); PHOSPHOROUS 3.1 mg/dL (2.5-4.6); POTASSIUM 3.3 mmol/L (3.5-5.1); PROTEIN TOTAL SERUM 4.5 g/dL (6.0-8.3)
[2017-05-09 08:55] LABS: ARTERIAL DRAW? YES
== END 2017-05-06 16:37 | DRG 80 ==
LOC: CICCU3 23:15
PROC: B24BYZZ Ultrasonography of Heart with Aorta using Other Contrast (ICD-10-PCS; principal; 2017-05-05)
DX: J96.90 Respiratory failure, unspecified, unspecified whether with hypoxia or hypercapnia; T65.91XA Toxic effect of unspecified substance, accidental (unintentional), initial encounter
CPT/HCPCS: 36600; 71010; 80053; 81003; 82150; 82247; 82248; 82330; 82550; 82553; 82803; 82947; 82977; 83036; 83690; 83735; 84100; 84484; 84703; 85025; 85610; 85730; 86850; 86900; 86901; 93005; 93306; 94003; J0610; J1644; J1815; J1940; J2020; J2310; J2370; J2543; J2930; J3010; J3475